=== PATIENT | male | born 2000 | race Caucasian/White ===

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

== ENCOUNTER 2024-06-16 17:32 | Emergency (ER) | payer BC ==
[~2024-06-16] VITALS: Ht 175.3 cm; Wt 80.5 kg
[~2024-06-16 17:32] MED LIST changes: +CRUTCH1 EACH
[2024-06-16] MEDS ORDERED: DOXYCYCLINE MO100 MG PO (17:53)
[2024-06-16] MEDS ORDERED: MECLIZINE HCL 25 MG TAB PO ONE (18:00)
[2024-06-16] MEDS ORDERED: MECLIZINE HCL25 MG PO (18:54)
[2024-06-16 19:01] VITALS: BP 138/79
== END 2024-06-16 19:01 | disposition home or self-care (01) ==
LOC: ED 17:32
DX: R42 Dizziness and giddiness (principal); F17.200 Nicotine dependence, unspecified, uncomplicated; Z88.8 Allergy status to other drugs, medicaments and biological substances; Z79.899 Other long term (current) drug therapy
CPT/HCPCS: 99283; A9270